=== PATIENT | female | born 1985 | race American Indian/Alaskan Native ===

== ENCOUNTER 2019-07-19 10:11 | Emergency (ER) | payer OTHER, BC ==
[2019-07-19 10:19] VITALS: BP 107/65
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
== END 2019-07-19 14:36 | disposition home or self-care (01) ==
LOC: ED 10:11
DX: S09.90XA Unspecified injury of head, initial encounter (principal); M54.6 Pain in thoracic spine; Z98.890 Other specified postprocedural states; Z79.899 Other long term (current) drug therapy; V49.49XA Driver injured in collision with other motor vehicles in traffic accident, initial encounter; Y93.89 Activity, other specified; Y92.410 Unspecified street and highway as the place of occurrence of the external cause; Y99.8 Other external cause status
CPT/HCPCS: 72072

== ENCOUNTER 2020-09-14 14:05 | Emergency (ER) | payer SELFPAY | END 2020-09-14 19:00 | disposition left against medical advice (07) | LOC: ED 14:05 | DX: M25.531 Pain in right wrist (principal); Z53.21 Procedure and treatment not carried out due to patient leaving prior to being seen by health care provider ==